=== PATIENT | female | born 1975 ===

== ENCOUNTER 2017-03-03 10:29 | Emergency (ER) | payer OTHER ==
[2017-03-03 10:46] VITALS: BP 101/73; PULSE 67; RESP 20; TEMP 97.4; O2SAT 100
--- NOTE | 2017-03-21 06:48 | C.PDOC ---
History Of Present Illness Pt was found in ED, called by name in different area of ED without response. Pt Eloped prior medical evaluation. Time Seen by Provider: 03/03/17 11:25 Chief Complaint (Nursing): Headache History Per: Other (eloped) Past Medical History Reviewed: Nursing Documentation Vital Signs: Last Vital Signs Temp 97.4 F L 03/03/17 10:44 Pulse 67 03/03/17 10:44 Resp 20 03/03/17 10:44 BP 101/73 03/03/17 10:44 Pulse Ox 100 03/03/17 10:44 - Medical History PMH: Denies: Anxiety, Depression, Chronic Kidney Disease, Sexually Transmitted Disease - [facility] Procedures RESECTION OF RIGHT OVARY, PERCUTANEOUS ENDOSCOPIC APPROACH (06/04/16) Family History: States: Unknown Family Hx - Social History Hx Alcohol Use: No Hx Substance Use: No - Immunization History Hx Tetanus Toxoid Vaccination: No Hx Influenza Vaccination: No Hx Pneumococcal Vaccination: No Review Of Systems Review Of Systems: ROS cannot be obtained secondary to pt's inabilty to answer questions. ED Course And Treatment O2 Sat by Pulse Oximetry: 100 Progress Note: Pt ELoped from ED prior medical evaluation. Disposition - Disposition Disposition: ELOPEMENT - ER ONLY Disposition Time: 11:40 Condition: GOOD - Clinical Impression Clinical Impression: History of elopement from health care facility
== END 2017-03-03 11:42 | disposition left against medical advice (07) ==
LOC: C.ER 10:29
DX: R51 Headache (principal); Z02.9 Encounter for administrative examinations, unspecified